=== PATIENT | male | born 1985 | race Caucasian/White ===

== ENCOUNTER → 2017-03-09 | Outpatient (CLI) | payer OTHER ==
[~2017-03-09] MED LIST: CLARITIN 1010 MG/TAB PO; FLONASEALLERGY NS; LIPITOR 10MG10 MG PO; MOBIC15 MG PO; PRILOSEC 20MG20 MG PO; TOPROL XL 25MG25 MG PO; TOPROL XL 50MG50 MG PO; TYLENOL 325MG325 MG PO
== END ==
LOC: COL.RAD 10:48
DX: R07.89 Other chest pain (principal)
CPT/HCPCS: J7050; Q9967

== ENCOUNTER 2017-03-13 07:34 | Outpatient (CLI) | payer OTHER ==
[~2017-03-13] VITALS: Ht 180.3 cm; Wt 109.0 kg
[2017-03-13] MEDS ORDERED: MOTRIN 800800 MG/TAB PO (07:59)
[2017-03-13] MEDS ORDERED: LIPITOR 10MG10 MG PO (08:00)
[2017-03-13 08:01] VITALS: BP 122/98; PULSE 65; TEMP 97.6
[2017-03-13 08:12] LABS: HEMATOCRIT 44.6 % (42.0-52.0); HEMOGLOBIN 15.4 g/dl (13.5-18.0); MEAN CELL VOLUME 90 fl (80.0-100.0); MEAN CORPUSCULAR HEMOGLOBIN 31 pg (27.0-31.0); MEAN CORPUSCULAR HGB CONC 35 g/dl (33.0-37.0); MEAN PLATELET VOLUME 10.6 fl (7.4-10.4); PLATELET COUNT 173 K/mm3 (130-400); RED BLOOD COUNT 4.96 M/mm3 (4.20-5.60); WHITE BLOOD COUNT 7.4 K/mm3 (4.8-10.8)
== END 2017-03-13 11:03 | disposition home or self-care (01) ==
LOC: COL.CAR 07:34
PROVIDERS: Internal Medicine Interventional Cardiology
DX: R00.2 Palpitations (principal); I10 Essential (primary) hypertension; R55 Syncope and collapse; I15.9 Secondary hypertension, unspecified; F17.290 Nicotine dependence, other tobacco product, uncomplicated; Z82.49 Family history of ischemic heart disease and other diseases of the circulatory system; Z83.3 Family history of diabetes mellitus
CPT/HCPCS: C1764